=== PATIENT | male | born 1940 | race African-American/Black ===

== ENCOUNTER 2017-11-20 10:46 | Emergency (ER) | payer MEDICARE, OTHER ==
[~2017-11-20] VITALS: Ht 180.3 cm; Wt 101.4 kg
[2017-11-20] MEDS ORDERED: SODIUM CHLORIDE 0.9% 500 ML IV ONE (11:34)
[2017-11-20] MEDS ORDERED: MORPHINE SULFATE 4 MG/ML CPJ (NOT FOR IM USE) IV STA (11:34)
[2017-11-20] MEDS ORDERED: ONDANSETRON HCL 4MG/2ML INJ IV STA (11:34)
[2017-11-20 12:00] LABS: CLARITY URINE CLEAR (CLEAR); COLOR URINE YELLOW (YELLOW); KETONES URINE NEGATIVE (NEGATIVE); LEUKOCYTE ESTERASE URINE TRACE (NEGATIVE); NITRITE URINE NEGATIVE (NEGATIVE); OCCULT BLOOD URINE TRACE (NEGATIVE); PROTEIN URINE NEGATIVE (NEGATIVE); SPECIFIC GRAVITY URINE 1.019 (1.005-1.030); UROBILINOGEN URINE 0.2 E.U./dL (0.2-1.0)
[2017-11-20 12:30] LABS: BASOPHILS % 0.6 % (0.0-2.0); EOSINOPHILS % 1.1 % (0.0-5.0); HEMATOCRIT. 37.7 % (42.0-52.0); HEMOGLOBIN. 12.7 g/dL (14.0-18.0); LYMPHOCYTES % 30.7 % (20.0-50.0); MEAN CORPUSCULAR HEMOGLOBIN 28.7 pg (28.0-32.0); MEAN CORPUSCULAR VOLUME 85.2 fL (80.0-94.0); MEAN PLATELET VOLUME 8.4 fl (7.4-10.4); MONOCYTES % 12.2 % (2.0-8.0); NEUTROPHILS % 55.4 % (40.0-76.0); PLATELET 164 x1000/uL (130-400); RED BLOOD CELL COUNT 4.42 mill/uL (4.7-6.1); RED CELL DISTRIBUTION WIDTH 13.9 % (11.6-14.6)
[2017-11-20 12:36] LABS: CHLORIDE 101 mEq/L (98-107)
[2017-11-20 12:49] LABS: INR 1.2; PROTHROMBIN TIME 11.8 sec (9.1-11.1)
[2017-11-20] MEDS ORDERED: IOHEXOL-350 100 ML BOTTLE ONE (14:33)
[2017-11-20 14:56] VITALS: BP 118/87
== END 2017-11-20 14:58 | disposition home or self-care (01) ==
LOC: ER 12:39
DX: R10.9 Unspecified abdominal pain (principal); I10 Essential (primary) hypertension; E11.9 Type 2 diabetes mellitus without complications; E78.4 Other hyperlipidemia; F12.10 Cannabis abuse, uncomplicated; Z95.0 Presence of cardiac pacemaker
CPT/HCPCS: 36415; 74177; 80053; 81003; 83690; 85025; 85610; 96374; 96375; 99285; J2270; J2405; J7030; Q9967; 96361

== ENCOUNTER 2024-12-10 08:27 | Inpatient (IN) | payer OTHER, MEDICARE ==
[~2024-12-10] VITALS: Ht 180.3 cm; Wt 80.7 kg
[2024-12-10 08:29] VITALS: O2SAT 100
[2024-12-10] MEDS ORDERED: MORPHINE SULFATE 4 MG/ML INJ (FOR IV/IM USE) IV ONE (08:45)
[2024-12-10 09:19] LABS: HEMATOCRIT. 38.8 % (42.0-52.0); HEMOGLOBIN. 12.3 g/dL (14.0-18.0); MEAN PLATELET VOLUME 8.5 fl (7.4-10.4); PLATELET 128 x1000/uL (130-400); RED BLOOD CELL COUNT 4.42 mill/uL (4.7-6.1); RED CELL DISTRIBUTION WIDTH 14.9 % (11.6-14.6)
[2024-12-10 09:42] LABS: CREATININE 1.2 mg/dL (0.6-1.3); UREA NITROGEN BLOOD 9 mg/dL (9-23)
[2024-12-10 09:44] LABS: ASPARTATE AMINOTRANSFERASE 25 IU/L (<34); BILIRUBIN DIRECT 0.2 mg/dL (<=3.0)
[2024-12-10 09:45] LABS: BILIRUBIN TOTAL 0.7 mg/dL (0.1-1.0); PROTEIN TOTAL 6.5 g/dL (6.0-8.3)
[2024-12-10] MEDS: MORPHINE SULFATE 4 MG/ML INJ (FOR IV/IM USE) IV NR (10:24)
[2024-12-10] MEDS ORDERED: ACETAMINOPHEN 325MG TABLET PO PRN ×2 (11:15)
[2024-12-10] MEDS ORDERED: IPRATROPIUM/ALBUTEROL 0.5-3(2.5)MG/3ML NEB HHN PRN (11:15)
[2024-12-10] MEDS ORDERED: NALOXONE HCL 0.4MG/ML VIAL IV PRN ×2 (11:30→11:45)
[2024-12-10] MEDS: AMLODIPINE 5MG TABLET PO SCH ×2 (11:53→21:00)
[2024-12-10] MEDS: MULTIVITAMINS,THER W-MINERALS TABLET PO SCH (11:53)
[2024-12-10] MEDS: TAMSULOSIN HCL 0.4MG SR CAPSULE PO SCH (11:54)
[2024-12-10 12:13] LABS: LACTATE DEHYDROGENASE 239 IU/L (120-246); PHOSPHORUS 2.4 mg/dL (2.5-4.9)
[2024-12-10 12:15] LABS: BAND% 3.0 % (1.0-6.0); EOSINOPHILS % MANUAL 3.0 % (0.0-5.0); LYMPHOCYTES % MANUAL 32.0 % (20.0-50.0); MONOCYTES % MANUAL 18.0 % (2.0-8.0); NEUTROPHILS % MANUAL 44.0 % (45.0-75.0); PLATELET ESTIMATE SLIGHTLY DECREASED
[2024-12-10] MEDS: SODIUM CHLORIDE 0.9% 1,000 ML IV SCH (12:20)
[2024-12-10 12:55] LABS: CLARITY URINE CLEAR (CLEAR); COLOR URINE YELLOW (YELLOW); GLUCOSE URINE NEGATIVE (NEGATIVE); KETONES URINE TRACE (NEGATIVE); LEUKOCYTE ESTERASE URINE NEGATIVE (NEGATIVE); NITRITE URINE NEGATIVE (NEGATIVE); OCCULT BLOOD URINE TRACE (NEGATIVE); PH URINE 7.0 (4.5-8.0); PROTEIN URINE NEGATIVE (NEGATIVE); SPECIFIC GRAVITY URINE 1.018 (1.005-1.030); UROBILINOGEN URINE 0.2 E.U./dL (0.2-1.0)
[2024-12-10 13:13] LABS: *AMPHETAMINES SCREEN URINE NEGATIVE (NEGATIVE)
[2024-12-10 13:14] LABS: *BENZODIAZEPINES SCREEN URINE NEGATIVE (NEGATIVE)
[2024-12-10 13:15] LABS: *BARBITURATES SCREEN URINE NEGATIVE (NEGATIVE); *COCAINE SCREEN URINE NEGATIVE (NEGATIVE); CANNABINOID URINE SCREEN PRESUMPTIVE POSITIVE (NEGATIVE); ECSTASY MDMA SCREEN URINE NEGATIVE (NEGATIVE); METHADONE URINE SCREEN NEGATIVE (NEGATIVE); OPIATES URINE SCREEN PRESUMPTIVE POSITIVE (NEGATIVE); PHENCYCLIDINE URINE SCREEN NEGATIVE (NEGATIVE)
[2024-12-10 13:17] LABS: SQUAMOUS EPITHELIAL CELL URINE 1+ /lpf (RARE/1+)
[2024-12-10 13:18] LABS: WBC URINE 0-2 /hpf (0-2)
[2024-12-10 13:19] LABS: BACTERIA URINE TRACE; MUCUS URINE TRACE /lpf (NONE/TRACE)
[2024-12-10] MEDS: POTASSIUM-SODIUM PHOSPHATE POWDER PACKET PO NR (13:39)
[2024-12-10] MEDS: THIAMINE HCL 100MG TABLET PO SCH (13:40)
[2024-12-10] MEDS: HYDROMORPHONE HCL/PF 2MG/ML INJ IV PRN (14:12)
[2024-12-10] MEDS ORDERED: CLONIDINE 0.1MG TABLET PO PRN (15:15)
[2024-12-10 16:00] VITALS: BP 136/85; PULSE 75; RESP 18; TEMP 36.8; O2SAT 98
[2024-12-10] MEDS ORDERED: PNEUMOCOCCAL 20-VAL CONJ-DIP CRM 0.5ML IM ONE (18:00)
[2024-12-10 20:00] VITALS: BP 122/72; PULSE 62; RESP 20; TEMP 37.2; O2SAT 98
[2024-12-10] MEDS: SENNOSIDES/DOCUSATE SOD 8.6/50MG TABLET PO SCH (21:30)
[2024-12-11] VITALS: BP 103/62; PULSE 60; RESP 19; TEMP 36.6; O2SAT 99
[2024-12-11 04:00] VITALS: BP 116/74; PULSE 62; RESP 18; TEMP 36.6; O2SAT 99
[2024-12-11] MEDS: PANTOPRAZOLE 40MG DR TABLET PO SCH (06:24)
[2024-12-11 07:31] LABS: HEMATOCRIT. 36.8 % (42.0-52.0); HEMOGLOBIN. 12.0 g/dL (14.0-18.0); MEAN PLATELET VOLUME 8.7 fl (7.4-10.4); PLATELET 132 x1000/uL (130-400); RED BLOOD CELL COUNT 4.29 mill/uL (4.7-6.1); RED CELL DISTRIBUTION WIDTH 14.6 % (11.6-14.6)
[2024-12-11 07:48] LABS: CREATININE 1.2 mg/dL (0.6-1.3)
[2024-12-11 07:49] LABS: UREA NITROGEN BLOOD 11 mg/dL (9-23)
[2024-12-11 07:50] LABS: T4 FREE 1.18 ng/dL (0.89-1.76)
[2024-12-11 07:51] LABS: PHOSPHORUS 3.2 mg/dL (2.5-4.9)
[2024-12-11 08:00] VITALS: BP 117/75; PULSE 60; RESP 17; TEMP 36.2; O2SAT 96
[2024-12-11 08:13] LABS: HIV 1/2 AB P24AG Negative (Negative)
[2024-12-11] MEDS: ASPIRIN 81MG EC TABLET PO SCH (08:49)
[2024-12-11] MEDS: ONDANSETRON HCL 4MG/2ML INJ IV PRN (08:50)
[2024-12-11 11:06] LABS: BAND% 1.0 % (1.0-6.0); EOSINOPHILS % MANUAL 5.0 % (0.0-5.0); LYMPHOCYTES % MANUAL 37.0 % (20.0-50.0); MONOCYTES % MANUAL 14.0 % (2.0-8.0); NEUTROPHILS % MANUAL 43.0 % (45.0-75.0)
[2024-12-11 11:07] LABS: PLATELET ESTIMATE NORMAL
[2024-12-11 12:00] VITALS: BP 102/78; PULSE 61; RESP 16; TEMP 36.1; O2SAT 95
[2024-12-11 14:26] LABS: HEPATITIS C VIR.AB 0.02 INDEXVAL (0.00-0.80)
[2024-12-11 15:37] LABS: ASPARTATE AMINOTRANSFERASE 28 IU/L (<34); TROPONIN I HIGH SENSITIVITY 5 ng/L (3.0-53)
[2024-12-11 15:38] LABS: BILIRUBIN DIRECT 0.2 mg/dL (<=3.0); BILIRUBIN TOTAL 0.6 mg/dL (0.1-1.0); PROTEIN TOTAL 6.0 g/dL (6.0-8.3)
[2024-12-11 16:00] VITALS: BP 113/72; PULSE 65; RESP 18; TEMP 36.2; O2SAT 98
[2024-12-11 20:00] VITALS: BP 112/68; PULSE 60; RESP 19; TEMP 36.1; O2SAT 98
[2024-12-11] MEDS: HYDROCODONE/ACETAMINOPHEN 5/325MG TABLET PO PRN (23:20)
[2024-12-12] VITALS: BP 124/72; PULSE 64; RESP 18; TEMP 36.1; O2SAT 97
[2024-12-12] MEDS ORDERED: ONDANSETRON HCL 4MG/2ML INJ IV PRN (03:00)
[2024-12-12 04:00] VITALS: BP 113/67; PULSE 63; RESP 18; TEMP 36.7; O2SAT 98
[2024-12-12 08:00] VITALS: BP 128/72; PULSE 60; RESP 17; TEMP 36.1; O2SAT 100
[2024-12-12 09:46] VITALS: BP 113/71; PULSE 62; RESP 18; TEMP 97
[2024-12-12] MEDS ORDERED: AMLO5TAB88 PO (11:04)
[2024-12-12] MEDS ORDERED: THIA100T72 PO (11:04)
[2024-12-12] MEDS ORDERED: SENN1TAB35 PO (11:04)
== END 2024-12-12 10:26 | disposition home health service (06) | DRG 694 ==
LOC: ER 08:27 → 6WST 10:02 → EDBEDREQ 10:05 → EDBEDREQTM 10:05 → ENRESERV 13:32
PROVIDERS: ADMIT Internal Medicine; ATTEND Internal Medicine
DX: N20.0 Calculus of kidney (principal); C90.00 Multiple myeloma not having achieved remission; D61.818 Other pancytopenia; N28.1 Cyst of kidney, acquired; K76.89 Other specified diseases of liver; I10 Essential (primary) hypertension; M89.9 Disorder of bone, unspecified; E11.9 Type 2 diabetes mellitus without complications; Z79.82 Long term (current) use of aspirin; Z79.899 Other long term (current) drug therapy; Z95.0 Presence of cardiac pacemaker
CPT/HCPCS: 36415; 71045; 74176; 80048; 80076; 80305; 81003; 82040; 82232; 82550; 82962; 83615; 83735; 84100; 84155; 84165; 84439; 84443; 84481; 84484; 85025; 85379; 93005; 93970; 97162; 97166; 99285; A4606; J1171; J2270; J2405